=== PATIENT | female | born 2000 | race Caucasian/White ===

== ENCOUNTER 2020-07-18 15:19 | Emergency (ER) | payer BC, OTHER ==
[~2020-07-18] VITALS: Ht 167.6 cm; Wt 104.3 kg
[2020-07-18] MEDS ORDERED: NORCO 5-325 TA1 EAC2 PO (16:34)
[2020-07-18 17:26] VITALS: BP 129/86
== END 2020-07-18 17:27 | disposition home or self-care (01) ==
LOC: ER 15:19
DX: S82.832A Other fracture of upper and lower end of left fibula, initial encounter for closed fracture (principal); S93.602A Unspecified sprain of left foot, initial encounter; W10.9XXA Fall (on) (from) unspecified stairs and steps, initial encounter; Y93.89 Activity, other specified; Y92.89 Other specified places as the place of occurrence of the external cause; Y99.8 Other external cause status